=== PATIENT | female | born 1990 | race Caucasian/White ===

== ENCOUNTER 2017-05-02 14:31 | Emergency (ER) | payer OTHER ==
[~2017-05-02] VITALS: Ht 167.6 cm; Wt 78.0 kg
[2017-05-02 14:33] VITALS: BP 125/84; PULSE 84; RESP 24; TEMP 98.3; O2SAT 99
--- NOTE | 2017-05-02 14:48 | PD ---
HPI Chief Complaint: Injury Time Seen by Provider: 14:48 Travel History International Travel<30 days: No Contact w/Intl Traveler<30days: No Traveled to known affect area: No History of Present Illness HPI 26-year-old female presents to the emergency Department with complaint of left sided rib cage and mid back pain after hanging from a rope [employer] today and hearing a "pop" in her side with sudden onset of stabbing pain. Pain is worse with movement of the left arm and deep breathing. She denies shortness of breath or difficulty breathing. Denies hemoptysis. Denies vomiting. Has not taken any medications or tried any treatments to alleviate her symptoms. Last menstrual period was approximately a month ago. Denies contraceptive use. Possible risk of . No known allergies. Has no other medical complaints. No other modifying factors or associated signs and symptoms. PFSH Social History Tobacco Use: No Allergies-Medications (Allergen,Severity, Reaction): Coded Allergies: No Known Allergies (Unverified , 05/02/17) Reported Meds & Prescriptions Reported Meds & Active Scripts Active Flexeril (Cyclobenzaprine HCl) 10 Mg Tab 10 Mg PO TID PRN Ibuprofen 800 Mg Tab 800 Mg PO Q6HR PRN Review of Systems Except as stated in HPI: all other systems reviewed are Neg Physical Exam Narrative GENERAL: Well-nourished, well-developed female patient, in no acute distress; tearful SKIN: Warm and dry. HEAD: Atraumatic. Normocephalic. EYES: Pupils equal and round. No scleral icterus. No injection or drainage. ENT: Mucosa pink and moist. NECK: Trachea midline. CHEST: Reproducible tenderness to the left lateral rib cage area; without crepitance or deformity. No retractions or use of accessory muscles. CARDIOVASCULAR: Regular rate and rhythm. No murmur appreciated. RESPIRATORY: No accessory muscle use. Clear to auscultation. Breath sounds equal bilaterally. No retractions or tachypnea. GASTROINTESTINAL: Flat. MUSCULOSKELETAL: No obvious deformities. No clubbing. No cyanosis. No edema. BACK: Reproducible tenderness to the lower area of the left trapezius muscle just below the scapula and extends the left lateral rib cage; no crepitance or deformity. NEUROLOGICAL: Awake and alert. Oriented 3. No obvious cranial nerve deficits. Motor grossly within normal limits. Normal speech. Moves all extremities. 5/5 strength to all extremities. PSYCHIATRIC: Appropriate mood and affect; insight and judgment normal. Data Data Last Documented VS Vital Signs Date Time Temp Pulse Resp B/P Pulse Ox O2 Delivery O2 Flow Rate FiO2 05/02/17 14:43 Room Air 05/02/17 14:33 98.3 84 24 125/84 99 Orders Ketorolac Inj (Toradol Inj) (05/02/17 15:00) Orphenadrine Inj (Norflex Inj) (05/02/17 15:00) Ribs, Uni (W/Exp Cxr-Min 3vw) (05/02/17 14:48) Ed Urine Pregnancytest Poc (05/02/17 14:51) Ice/Cold Pack (05/02/17 14:51) MDM Medical Decision Making Medical Screen Exam Complete: Yes Emergency Medical Condition: Yes Medical Record Reviewed: Yes Differential Diagnosis Muscle strain, muscle spasm, rib fracture Narrative Course 26-year-old female medical exam consistent with left trapezius muscle strain. Patient does have tenderness to left lateral rib cage and she reports pain is worse with breathing. There is no crepitance or deformity. The patient is in no acute distress and she denies shortness of breath or difficulty breathing. Denies hemoptysis. Urine negative. Toradol and Norflex administered in the ER. Left rib cage with expiratory chest x-ray ordered. 1547: Left rib with expiratory chest x-ray with no acute findings. Suspecting trapezius muscle strain. Flexeril and ibuprofen prescribed for home. Patient provided arm sling for support; she states when she hangs her arm down is when the pain is the worse. Instructed patient to follow up with primary care provider. Patient verbalizes understanding and agreement with treatment plan. Patient is medically cleared and stable for discharge. Discussed reasons to return to the emergency department. Patient agrees with treatment plan. The patients vital signs are stable and the patient is stable for outpatient follow- up and treatment. Patient discharged home, stable and in no acute distress. Diagnosis Primary Impression: Strain of left trapezius muscle Qualified Code: S46.812A - Strain of left trapezius muscle, initial encounter Referrals: Primary Care Physician Patient Instructions: General Instructions, Muscle Spasm (ED), Muscle Strain ( ED) Departure Forms: Tests/Procedures, Work Release Enter return to work date: May 09, 2017 Additional Instructions: Tylenol or ibuprofen as directed and as needed to reduce pain Flexeril as prescribed for muscle spasms Get adequate rest Ice and/or heating pad to affected area to reduce pain Avoid aggravating activity; increase activity as tolerated Follow-up with primary care provider Return to the emergency department immediately with worsening symptoms Med/Other Pt SpecificInfo: Prescription(s) given Scripts Cyclobenzaprine (Flexeril)10 Mg Tab10 Mg PO TID PRN (MUSCLE SPASM) #30 TAB Ref 0 Prov:Emily Fernandes 05/02/17 Ibuprofen 800 Mg Abr991 Mg PO Q6HR PRN (PAIN) #30 TAB Ref 0 Prov:Emily Fernandse 05/02/17 Disposition: 01 DISCHARGE HOME Condition: Stable Emily Fernandes May 02, 2017 14:48
[2017-05-02] MEDS ORDERED: ORPHENADRINE INJ 60 MG/2 ML AMP IM ONE (15:00)
[2017-05-02] MEDS ORDERED: KETOROLAC TROMETHAMINE 60 MG/2 ML (IM) VIAL IM ONE (15:00)
[2017-05-02] MEDS ORDERED: CYCL1TAB29 PO (15:01)
[2017-05-02] MEDS ORDERED: IBUP800T23 PO (15:01)
--- NOTE | 2017-05-02 15:43 | RADRPT ---
EXAM DATE/TIME: 05/02/2017 15:03 [facility] COMPARISON: No previous studies available for comparison. INDICATIONS : Left side rib pain after jumping and using rope swings at a local trampoline gym. MEDICAL HISTORY : None. SURGICAL HISTORY : None. ENCOUNTER: Initial ACUITY: 1 day PAIN SCORE: 10/10 LOCATION: Left lateral ribs FINDINGS: Multiple views of the left ribs were performed. There is no evidence of displaced fracture. No dest ructive lesions or areas of periosteal thickening are seen. Expiratory view of the chest is negative for pneumothorax. The mediastinal structures are midline. CONCLUSION: No acute disease. Tani Rdz MD on May 02, 2017 at 15:39 Board Certified Radiologist. This report was verified electronically.
== END 2017-05-02 16:01 | disposition home or self-care (01) ==
LOC: NEPK 14:31
DX: S46.812A Strain of other muscles, fascia and tendons at shoulder and upper arm level, left arm, initial encounter (principal); M54.6 Pain in thoracic spine; X58.XXXA Exposure to other specified factors, initial encounter
CPT/HCPCS: 71101; 84703; 96372; 99284; J1885; J2360